=== PATIENT | female | born 1990 | race African-American/Black ===

== ENCOUNTER 2020-10-15 07:02 | Inpatient (IN) | payer OTHER ==
[~2020-10-15] VITALS: Ht 162.6 cm; Wt 87.5 kg
--- NOTE | 2020-10-16 09:00 | NUR ---
10/16/20 0900 Myranda Brooks 0800 PATIENT ARRIVES TO ROOM 103, AWAKE. DENIES PAIN OR NAUSEA. BREAST FEEDING . MOTHER AT BEDSIDE. RESP EVEN AND UNLABORED.
--- NOTE | 2020-10-17 11:53 | OR ---
[facility] [address] [place], [place] [address] Signed DATE OF OPERATION: 10/16/2020 SURGEON: Naveen Meraz MD PREOPERATIVE DIAGNOSIS: Term , previous section. POSTOPERATIVE DIAGNOSIS: Term , previous section. PROCEDURE: Repeat low transverse segment section, delivery of live male . LEARNING SUPPORT RESOURCE ROOM TEACHER: Colleen Castillo MD. ANESTHESIA: Spinal. ESTIMATED BLOOD LOSS: 600 mL. COMPLICATIONS: None. DRAINS: Schneider to bladder. FINDINGS: Live male , Apgars 8 and 9. Weight 8 pounds 7 ounces. Normal uterus, normal tubes and ovaries bilateral. DESCRIPTION OF PROCEDURE: The patient was brought to the operating room, placed in supine position. After adequate spinal anesthesia was obtained, was prepped and draped in usual sterile fashion. A Pfannenstiel skin incision was made with a scalpel through the previous surgical skin incision. Subcutaneous tissue was dissected with Bovie and the scalpel. The fascia was nicked with scalpel and extended in transverse fashion using curved scissors. The underlying abdominal musculature was bluntly and sharply from the fascia above and below the incision. The abdominal musculature was bluntly sharply Electronically Signed By: NAVEEN MERAZ MD 10/17/20 1153 PATIENT NAME: PRINCESS Antonia PIERRE OPERATIVE REPORT DATE OF : [birth year] REPORT #: [id number] PHYSICIAN: NAVEEN MERAZ MD PCP: NO PRIMARY CARE PHYSICIAN REPORT IS CONFIDENTIAL AND NOT TO BE RELEASED WITHOUT AUTHORIZATION [facility] [address] [place], [place] [address] Signed along the midline. The peritoneum was opened with scissors and extended in vertical fashion using curved scissors. The Jamar self-retaining retractor was inserted into the incision and tightened in place. The anterior cul-de-sac peritoneum was noted to be slightly elevated. Metzenbaum scissors were used to take midline portion that was elevated, this was opened and pushed down to help develop the bladder flap. The lower uterine segment was then carefully nicked with scalpel and extended in transverse fashion using finger dissection. The was noted to be vertex JOY presentation. The infant's head easily delivered from the incision. Cord was noted to be around the neck once loosely, this was removed and the rest of the easily delivered from the incision. The cord was doubly clamped and cut. The infant passed off table in good condition to awaiting nurse. The placenta was manually removed, the uterine cavity explored with a lap pad to remove any retained membranes. An angle stitch of 0 Monocryl was placed at one end of the incision and a running locking stitch of 0-Monocryl starting at the other end used to close the incision. Second running stitch of 0 Monocryl was used to imbricate the first layer. There was small amount of bleeding on the left side with a small hematoma just below the incision, this was controlled with two [id number]-ax-[id number] stitches of 0 Monocryl again making sure to stay above the bladder, which dropped down well during dissection. This was then controlled and so the entire pelvis was irrigated, suctioned, and examined, and any superficial bleeding spots cauterized with the Bovie. The Jamar retractor was removed and sheet of ACell placed over lower uterine segment to help with healing. The anterior wall peritoneum was closed using running stitch of 2-0 Vicryl suture. The abdominal musculature was reapproximated using interrupted stitches of 0 Vicryl suture. The abdominal wall incision was irrigated suctioned, examined and any bleeding spots cauterized with the Bovie. Powdered ACell sprinkled over the abdominal musculature to help with healing. The fascia was then closed using two running stitch of 0 Vicryl suture meeting in the midline. The subcutaneous tissue was closed using interrupted stitches of 3-0 Vicryl suture and the skin was reapproximated using skin clips. The patient tolerated the procedure well, went to the recovery room in good condition. Sponge, needle, and instrument count were correct at the end of the procedure. Naveen Meraz MD MJB/MODL /[id number] Electronically Signed By: NAVEEN MERAZ MD 10/17/20 1153 PATIENT NAME: PRINCESS Antonia PIERRE OPERATIVE REPORT DATE OF : [birth year] REPORT #: [id number] PHYSICIAN: NAVEEN MERAZ MD PCP: NO PRIMARY CARE PHYSICIAN REPORT IS CONFIDENTIAL AND NOT TO BE RELEASED WITHOUT AUTHORIZATION [address] [address] Signed Copies: ~ Electronically Signed By: NAVEEN MERAZ MD 10/17/20 1153 PATIENT NAME: GABBYPRINCESS Knight OPERATIVE REPORT DATE OF : [birth year] REPORT #: [id number] PHYSICIAN: NAVEEN MERAZ MD PCP: NO PRIMARY CARE PHYSICIAN REPORT IS CONFIDENTIAL AND NOT TO BE RELEASED WITHOUT AUTHORIZATION
--- NOTE | 2020-10-17 12:02 | PR ---
[facility] [address] [facility] [place] [address] Signed PP Progress Notes Datetime Report Generated by CPN: 10/17/2020 12:02 SUBJECTIVE: [id number] Pain: Within Normal Limits Nausea/Vomiting: Denies Vital Signs: [id number] Vital Signs: Reviewed; Within Normal Limits Notable Details: PP Hgb/Hct = 8.8/26.6 EXAM: Ongoing Abdomen/Uterus: Normal Lochia: Normal Extremities: Normal Incision: Normal IMPRESSION/PLAN/PROCEDURES: [id number] Impression: Normal Progression Plan: Continue Present Management Procedures: None Progress Notes: Doing well, without complaint, up in chair, tolerating activity and food well. Signing Physician: Destiny Tolliver MD Copies: ~ *Electronically Signed* 10/17/20 1202 DESTINY TOLLIVER MD PATIENT NAME: PRINCESS Antonia PIERRE PROGRESS NOTE DATE OF : 91 PHYSICIAN: DESTINY TOLLIVER MD RPT #: [id number] REPORT IS CONFIDENTIAL AND NOT TO BE RELEASED WITHOUT AUTHORIZATION
== END 2020-10-18 11:50 | disposition home or self-care (01) | DRG 787 ==
LOC: FBC 10-16 05:15
PROVIDERS: ADMIT General Practice; ATTEND General Practice
PROC: 3E0T3BZ Introduction of Anesthetic Agent into Peripheral Nerves and Plexi, Percutaneous Approach (ICD-10-PCS; 2020-10-16)
PROC: 3E0T33Z Introduction of Anti-inflammatory into Peripheral Nerves and Plexi, Percutaneous Approach (ICD-10-PCS; 2020-10-16)
PROC: 10D00Z1 Extraction of Products of Conception, Low, Open Approach (ICD-10-PCS; principal; 2020-10-16 06:45)
DX: O34.211 Maternal care for low transverse scar from previous cesarean delivery (principal); O99.324 Drug use complicating childbirth; N85.8 Other specified noninflammatory disorders of uterus; Z37.0 Single live birth; O69.81X0 Labor and delivery complicated by cord around neck, without compression, not applicable or unspecified; G89.18 Other acute postprocedural pain; Z3A.39 39 weeks gestation of pregnancy; F12.90 Cannabis use, unspecified, uncomplicated; O99.02 Anemia complicating childbirth; D64.9 Anemia, unspecified; Z86.19 Personal history of other infectious and parasitic diseases
CPT/HCPCS: 01961; 36415; 64488; 76942; 85027; A9270; J0690; J1100; J2001; J2274; J2300; J2370; J2405; J2590; J2795; J3010; J7121

== ENCOUNTER 2022-03-03 07:24 | Inpatient (IN) | payer OTHER ==
[~2022-03-03] VITALS: Ht 162.6 cm; Wt 93.9 kg
--- NOTE | 2022-03-15 08:37 | OR ---
[facility] [address] [place] [address] Signed DATE OF OPERATION: 03/14/2022 SURGEON: Naveen Meraz MD PREOPERATIVE DIAGNOSES: 1. Term . 2. Previous section x2. POSTOPERATIVE DIAGNOSES: 1. Term . 2. Previous section x2. PROCEDURES: 1. Repeat low transverse segment. 2. Delivery of live male infant. SOLAR TECHNICIAN: Gayatri Oh.O. ANESTHESIA: Spinal. ESTIMATED BLOOD LOSS: 500 mL. COMPLICATIONS: None. DRAINS: Schneider to bladder. FINDINGS: Live male infant, Apgars 9 and 9. Weight 8 pounds 1 ounce. Normal uterus. Normal tubes and ovaries bilateral. DESCRIPTION OF PROCEDURE: The patient was brought to the operating room, placed in supine position. After adequate spinal anesthesia was obtained, she was prepped and draped in usual sterile fashion. Schneider catheter was placed in the bladder. Pfannenstiel skin incision was made with a scalpel. Subcutaneous tissue was dissected with scalpel and Bovie. The fascia Electronically Signed By: NAVEEN MERAZ MD 03/15/22 0837 PATIENT NAME: PRINCESS Antonia PIERRE OPERATIVE REPORT DATE OF : [birth year] REPORT #: [id number] PHYSICIAN: NAVEEN MERAZ MD PCP: NO PRIMARY CARE PHYSICIAN REPORT IS CONFIDENTIAL AND NOT TO BE RELEASED WITHOUT AUTHORIZATION [address] [place], [place] [address] Signed was then nicked with scalpel and extended in transverse fashion using curved scissors. The underlying abdominal musculature was bluntly and sharply from the fascia above and below the incision. The abdominal musculature was bluntly and sharply along the midline. The peritoneum was opened and incision extended in vertical fashion using curved scissors. The Jamar self-retaining retractor was inserted into the incision and tightened in place. The lower uterine segment was identified. The lower uterine segment was carefully nicked with scalpel and the incision extended in transverse fashion using finger dissection. Clear fluid came from the incision. The infant was noted to be in the vertex DAVID presentation. The infant's head was easily delivered. Loop of cord did come out of the incision after delivery of the head, but the rest of the infant was delivered from the incision and cord doubly clamped and cut and the infant passed off table in good condition to awaiting nurse. The placenta was manually removed. Uterine cavity explored with lap pad to remove any retained membranes. An angle stitch of 0-Monocryl was placed at one end of the incision and a running locking stitch, starting at the other end of the incision used to close the incision. A second running stitch of 0-Monocryl was used to imbricate the first layer. The lower uterine segment was irrigated, suctioned, and examined any bleeding. Superficial bleeding spots cauterized with the Bovie. There was small amount of bleeding just to the right of midline on the incision, this was controlled with a [id number]-ph-abmcj stitch of 0-Monocryl. Good hemostasis was obtained, but there was a large raw area from previous surgery, so after the Jamar retractor was removed, the bladder flap area was sprinkled with Conor to help with hemostasis. The anterior wall peritoneum was then closed using running stitch of 2-0 Vicryl suture. The abdominal musculature was reapproximated using interrupted stitches of 0-Vicryl suture. The abdominal wall incision was irrigated, suctioned, and examined, and any bleeding spots cauterized with the Bovie. The raw areas of abdominal musculature were sprinkled with additional Conor and then the fascia closed using two running stitch of 0-Vicryl suture meeting in the midline. Subcutaneous tissue was irrigated, suctioned, and examined, and any bleeding spots cauterized with the Bovie. The remaining Conor sprinkled in the subcutaneous layer, which was then closed using interrupted stitches of 3-0 Vicryl suture. The skin was reapproximated using skin clips. The patient tolerated the procedure well, went to the recovery room in good condition. The sponge, needle, and instrument counts were correct at the end of the procedure. MD HEMAL Rainey/NERISL /[id number] Electronically Signed By: NAVEEN MERAZ MD 03/15/22 0837 PATIENT NAME: PRINCESS Antonia PIERRE OPERATIVE REPORT DATE OF : [birth year] REPORT #: [id number] PHYSICIAN: NAVEEN MERAZ MD PCP: NO PRIMARY CARE PHYSICIAN REPORT IS CONFIDENTIAL AND NOT TO BE RELEASED WITHOUT AUTHORIZATION [address] [address] Signed Copies: ~ Electronically Signed By: NAVEEN MERAZ MD 03/15/22 0837 PATIENT NAME: PRINCESS Antonia PIERRE OPERATIVE REPORT DATE OF : [birth year] REPORT #: [id number] PHYSICIAN: NAVEEN MERAZ MD PCP: NO PRIMARY CARE PHYSICIAN REPORT IS CONFIDENTIAL AND NOT TO BE RELEASED WITHOUT AUTHORIZATION
--- NOTE | 2022-03-15 08:48 | PR ---
[facility] [address] [facility] [place] [address] Signed PP Progress Notes Datetime Report Generated by CPN: 03/15/2022 08:48 SUBJECTIVE: [id number] Pain: Within Normal Limits Nausea/Vomiting: Denies Vital Signs: [id number] Vital Signs: Reviewed; Within Normal Limits Notable Details: PP Hgb/Hct = 9.1/27.2 Abdomen/Uterus: Normal Lochia: Normal Extremities: Normal Incision: Normal IMPRESSION/PLAN/PROCEDURES: [id number] Impression: Normal Progression Plan: Continue Present Management Progress Notes: Doing well, without complaint, voiding without difficulty, sitting up in chair. Signing Physician: Destiny Tolliver MD Copies: ~ *Electronically Signed* 03/15/22 0848 DESTINY TOLLIVER MD PATIENT NAME: PRINCESS Antonia PIERRE PROGRESS NOTE DATE OF : [birth year] PHYSICIAN: DESTINY TOLLIVER MD RPT #: [id number] REPORT IS CONFIDENTIAL AND NOT TO BE RELEASED WITHOUT AUTHORIZATION
--- NOTE | 2022-03-16 13:45 | PR ---
[facility] [address] [place] [address] Signed PP Progress Notes Datetime Report Generated by CPN: 03/16/2022 13:45 SUBJECTIVE: [id number] Pain: Within Normal Limits Nausea/Vomiting: Denies Vital Signs: [id number] Vital Signs: Reviewed; Within Normal Limits Notable Details: PP Hgb/Hct = 9.1/27.2 Abdomen/Uterus: Normal Lochia: Normal Extremities: Normal Incision: Normal IMPRESSION/PLAN/PROCEDURES: [id number] Impression: Normal Progression Plan: Discharge Procedures: None Progress Notes: Doing well, without complaint, ready to go home. Signing Physician: Destiny Tolliver MD Copies: ~ *Electronically Signed* 03/16/22 1345 DESTINY TOLLIVER MD PATIENT NAME: PRINCESS Antonia PIERRE PROGRESS NOTE DATE OF : [birth year] PHYSICIAN: DESTINY TOLLIVER MD RPT #: [id number] REPORT IS CONFIDENTIAL AND NOT TO BE RELEASED WITHOUT AUTHORIZATION
== END 2022-03-16 14:25 | disposition home or self-care (01) | DRG 788 ==
LOC: FBC 03-14 05:00
PROVIDERS: ADMIT General Practice; ATTEND General Practice
PROC: 10D00Z1 Extraction of Products of Conception, Low, Open Approach (ICD-10-PCS; principal; 2022-03-14 07:30)
DX: O34.211 Maternal care for low transverse scar from previous cesarean delivery (principal); Z3A.39 39 weeks gestation of pregnancy; Z37.0 Single live birth; O99.02 Anemia complicating childbirth; D64.9 Anemia, unspecified
CPT/HCPCS: 01961; 36415; 85027; 86850; 86900; 86901; A9270; J0690; J1100; J1200; J1885; J2274; J2300; J2370; J2405; J2590; J7121

== ENCOUNTER 2023-10-20 11:38 | Inpatient (IN) | payer OTHER ==
[~2023-10-20] VITALS: Ht 162.6 cm; Wt 91.2 kg
[2023-10-27] MEDS ORDERED: LACTATED RINGER'S 2,000 ML IV PRN (05:00)
[2023-10-27] MEDS ORDERED: LACTATED RINGER'S 1,000 ML IV SCH ×2 (05:00→17:31)
[2023-10-27] MEDS ORDERED: SOD+POT BICARB/CITRIC ACID 2 EA TABLET.EFF PO SCH (07:00)
[2023-10-27] MEDS ORDERED: CEFAZOLIN SODIUM 2 GM/20 ML SYR IV SCH (07:00)
[2023-10-27 14:36] LABS: HEMATOCRIT 33.8 % (35.0-50.0); HEMOGLOBIN 11.6 g/dL (12.0-18.0); MCH 29.5 (27-36); MCHC 34.3 g/dl (30-36); MCV 85.8 fl (81-99); RBC 3.94 M/ul (4.3-5.7); RDW 14.1 (10.5-15.0)
[2023-10-27 15:15] LABS: ABO A; ANTIBODY SCREEN NEGATIVE; RH POSITIVE
[2023-10-27] MEDS ORDERED: BUPIVACAINE 0.75% IN DEXTROSE 2 ML AMP ONE (15:35)
[2023-10-27] MEDS ORDERED: LIDOCAINE HCL 2% 5 ML SDV ONE (15:35)
[2023-10-27] MEDS ORDERED: ondansetron HCL 4 MG/2 ML VIAL ONE (15:35)
[2023-10-27] MEDS ORDERED: fentaNYL citrate 100 MCG/2 ML VIAL ONE (15:35)
[2023-10-27] MEDS ORDERED: DEXAMETHASONE SOD PHOS 4 MG/ML VIAL ONE (15:35)
[2023-10-27] MEDS ORDERED: Ropivacaine HCl 0.5% 30 ML VIAL ONE (15:35)
[2023-10-27] MEDS ORDERED: MORPHINE SULFATE 1 MG/ML VIAL ONE (15:36)
[2023-10-27] MEDS ORDERED: OXYTOCIN 10 UNITS/ML VIAL ONE (15:36)
[2023-10-27] MEDS ORDERED: SODIUM CHLORIDE 0.9% 20 ML IV ONE (15:37)
[2023-10-27] MEDS ORDERED: LACTATED RINGER'S 1,000 ML IV ONE (16:19)
[2023-10-27] MEDS ORDERED: PHENYLEPHRINE HCL 10 MG/ML VIAL ONE (16:20)
[2023-10-27] MEDS ORDERED: diphenhydrAMINE HCL 50 MG/ML VIAL ONE (16:47)
[2023-10-27] MEDS ORDERED: TRANEXAMIC ACID 1,000 MG/10 ML AMP ONE (16:52)
[2023-10-27] MEDS ORDERED: diphenhydrAMINE HCL 50 MG/ML VIAL IV PRN (17:00)
[2023-10-27] MEDS ORDERED: ondansetron HCL 4 MG/2 ML VIAL IV PRN (17:00)
[2023-10-27] MEDS ORDERED: METOCLOPRAMIDE HCL 10 MG/2 ML SDV IV PRN (17:00)
[2023-10-27] MEDS ORDERED: NALOXONE HCL 0.4 MG SYR IV PRN (17:00)
[2023-10-27] MEDS ORDERED: PROCHLORPERAZINE EDISYLATE 10 MG/2 ML VIAL IV PRN (17:00)
[2023-10-27] MEDS ORDERED: HYDROmorphone HCL 1 MG/ML SYR IV PRN (17:00)
[2023-10-27] MEDS ORDERED: OXYCODONE HCL 5 MG TAB PO PRN (17:30)
[2023-10-27] MEDS ORDERED: PROMETHAZINE HCL 25 MG TAB PO PRN (17:30)
[2023-10-27] MEDS ORDERED: OXYTOCIN/0.9 % SODIUM CHLORIDE 500 ML IV SCH (17:30)
[2023-10-27] MEDS ORDERED: PROMETHAZINE HCL 25 MG SUPP PR PRN (17:30)
[2023-10-27] MEDS ORDERED: bisacodyL 10 MG SUPP PR PRN (17:30)
[2023-10-27] MEDS ORDERED: LIDOCAINE 2% VISCOUS 6 ML SYR TOP ONE (17:30)
--- NOTE | 2023-10-27 17:44 | NUR ---
10/27/23 1744 Yane Villalobos 1733- PT ARRIVES TO [facility] ROOM #104 ALERT AND ORIENTED. PT REPORTS NO PAIN OR NAUSEA. RESP EVEN AND UNLABORED. OXYGEN SAT HIGH 90'S ON RA. PT HAS AN 18G IV TO THE LEFT FOREARM INFUSING WITH LR AND PITOCIN. 1735- PT SAT UP SLIGHTLY IN BED. PT REPORTS NO DIZZINESS, NAUSEA, OR PAIN. 1739- PT SAT UP MORE IN BED. PT DENIES ANY DIZZINESS OR NAUSEA. 174- BABY TO PT'S LEFT BREAST.
[2023-10-27 17:50] VITALS: BP 97/53
[2023-10-27 18:09] LABS: AMPHETAMINES, URINE NEGATIVE (NEGATIVE); BARBITURATES, URINE NEGATIVE (NEGATIVE); BENZODIAZEPINE, URINE NEGATIVE (NEGATIVE); CANNABINOID, URINE NEGATIVE (NEGATIVE); COCAINE, URINE NEGATIVE (NEGATIVE); ECSTASY, URINE NEGATIVE (NEGATIVE); FENTANYL, URINE NEGATIVE (NEGATIVE); METHADONE, URINE NEGATIVE (NEGATIVE); OPIATES, URINE NEGATIVE (NEGATIVE); OXYCODONE, URINE NEGATIVE (NEGATIVE); PHENCYCLIDINE, URINE NEGATIVE (NEGATIVE)
[2023-10-27 18:20] LABS: BUPRENORPHINE, URINE NEGATIVE (NEGATIVE)
[2023-10-27] MEDS ORDERED: KETOROLAC TROMETHAMINE 30 MG/ML VIAL IV SCH (20:00)
[2023-10-27] MEDS ORDERED: SIMETHICONE 125 MG TABLET CHEWABLE PO SCH (21:00)
[2023-10-27] MEDS ORDERED: SENNOSIDES/DOCUSATE 1 EA TAB PO SCH (21:00)
[2023-10-27] MEDS ORDERED: ACETAMINOPHEN 500 MG TAB PO SCH (22:00)
[2023-10-28 05:14] LABS: HEMOGLOBIN 10.4 g/dL (12.0-18.0); RBC 3.54 M/ul (4.3-5.7); RDW 14.3 (10.5-15.0)
[2023-10-28 05:16] LABS: HEMATOCRIT 30.8 % (35.0-50.0); MCH 29.3 (27-36); MCHC 33.7 g/dl (30-36); MCV 86.9 fl (81-99)
--- NOTE | 2023-10-28 07:44 | PR ---
[facility] [address] [facility] [place], [place] [address] Signed PP Progress Notes Datetime Report Generated by CPN: 10/28/2023 07:45 SUBJECTIVE: [id number] Pain: Within Normal Limits Nausea/Vomiting: Denies Flatus: Yes Vital Signs: [id number] Vital Signs: Reviewed; Within Normal Limits EXAM: Ongoing Cardiovascular: Normal Respiratory: Normal Abdomen/Uterus: Abnormal Lochia: Normal Vulva/Perineum: Not Done Breasts: Not Done CVA Tenderness: Not Done Extremities: Normal Incision: Normal Progress: Normal Exam Comments: Abdomen with active BS. Fundus firm, NT @ U-2. Incision intact. H/H 10.4/30.8, plat 124k IMPRESSION/PLAN/PROCEDURES: [id number] Impression: Normal Progression; Pain Other Impression: Thrombocytopenia Other Plans: add binder, K pad Progress Notes: Doing well but pain worse this am. Just rec'd 2nd dose Toradol. Will add heat and binder. Narcotics are available as needed as well. Thrombocytopenia improving. Signing Physician: Colleen Castillo MD Copies: ~ *Electronically Signed* 10/28/23 0741 COLLEEN CASTILLO MD PATIENT NAME: PRINCESS Antonia PIERRE PROGRESS NOTE DATE OF : [birth year] PHYSICIAN: COLLEEN CASTILLO MD RPT #: [id number] REPORT IS CONFIDENTIAL AND NOT TO BE RELEASED WITHOUT AUTHORIZATION
[2023-10-28] MEDS ORDERED: METOCLOPRAMIDE HCL 10 MG/2 ML SDV IV PRN (17:00)
[2023-10-28] MEDS ORDERED: PROCHLORPERAZINE EDISYLATE 10 MG/2 ML VIAL IV PRN (17:00)
[2023-10-28] MEDS ORDERED: ondansetron HCL 4 MG/2 ML VIAL IV PRN (17:00)
[2023-10-28] MEDS ORDERED: IBUPROFEN 800 MG TAB PO SCH (18:00)
[2023-10-28] MEDS ORDERED: OXYCODONE HCL 5 MG TAB PO PRN (20:00)
--- NOTE | 2023-10-29 10:01 | PR ---
[facility] [address] [facility] [place], [place] [address] Signed PP Progress Notes Datetime Report Generated by GILLIAN: 10/29/2023 10:02 SUBJECTIVE: [id number] Pain: Within Normal Limits Nausea/Vomiting: Denies Flatus: Yes Bowel Movement: No Vital Signs: [id number] Vital Signs: Reviewed; Within Normal Limits EXAM: Ongoing Cardiovascular: Not Done Respiratory: Not Done Abdomen/Uterus: Abnormal Lochia: Normal Vulva/Perineum: Not Done Breasts: Not Done CVA Tenderness: Not Done Extremities: Normal Incision: Normal Progress: Normal Exam Comments: Abdomen with active BS. Fundus firm, NT @ U-2. IMPRESSION/PLAN/PROCEDURES: [id number] Impression: Normal Progression Other Impression: Thrombocytopenia Plan: Remove Pat; Discharge Other Plans: add binder, K pad Procedures: None Progress Notes: Doing well. She desires discharge. Signing Physician: Colleen Castillo MD Copies: ~ *Electronically Signed* 10/29/23 1002 COLLEEN CASTILLO MD PATIENT NAME: PRINCESS Antonia PIERRE PROGRESS NOTE DATE OF : [birth year] PHYSICIAN: COLLEEN CASTILLO MD RPT #: [id number] REPORT IS CONFIDENTIAL AND NOT TO BE RELEASED WITHOUT AUTHORIZATION
== END 2023-10-29 11:04 | disposition home or self-care (01) | DRG 787 ==
LOC: FBC 10-27 13:37
PROVIDERS: ADMIT Obstetrics & Gynecology; ATTEND Obstetrics & Gynecology
PROC: 10D00Z1 Extraction of Products of Conception, Low, Open Approach (ICD-10-PCS; principal; 2023-10-27 16:00)
DX: O34.211 Maternal care for low transverse scar from previous cesarean delivery (principal); O99.12 Other diseases of the blood and blood-forming organs and certain disorders involving the immune mechanism complicating childbirth; Z3A.39 39 weeks gestation of pregnancy; Z37.0 Single live birth; O69.81X0 Labor and delivery complicated by cord around neck, without compression, not applicable or unspecified; D69.6 Thrombocytopenia, unspecified
CPT/HCPCS: 01961; 36415; 80307; 85027; 86850; 86900; 86901; A9270; J0690; J1100; J1200; J1885; J2001; J2274; J2371; J2405; J2590; J2795; J3010; J7121